=== PATIENT | female | born 1985 | race African-American/Black ===

== ENCOUNTER 2023-11-21 10:15 | Emergency (ER) | payer SELFPAY ==
[2023-11-21] MEDS: Ketorolac 30 MG/ML SDV IVPUSH ONE (10:49)
[2023-11-21] MEDS: Metoclopramide 10 MG/2 ML SDV IVPUSH ONE (10:50)
[2023-11-21] MEDS: Sodium Chloride 0.9% 1,000 ML IV ONE (10:56)
[2023-11-21 11:00] LABS: BASOPHILS ABSOLUTE AUTO 0.1 x10-3/uL (0.0-0.1); BASOPHILS PERCENT AUTO 0.6 % (0.2-1.5); EOSINOPHILS ABSOLUTE AUTO 0.4 x10-3/uL (0.0-0.8); EOSINOPHILS PERCENT AUTO 3.7 % (0.6-8.1); HEMATOCRIT 37.7 % (34.2-48.2); HEMOGLOBIN 12.4 g/dL (11.4-15.5); LYMPHOCYTES ABSOLUTE AUTO 3.9 x10-3/uL (1.0-4.4); LYMPHOCYTES PERCENT AUTO 36.7 % (18.4-52.1); MEAN CORPUSCULAR HEMOGLOBIN 26.6 pg (23.9-33.9); MEAN CORPUSCULAR HGB CONC 32.8 g/dL (31.9-34.8); MEAN CORPUSCULAR VOLUME 81.2 fL (76.7-100.5); MEAN PLATELET VOLUME 7.3 fL (7.1-12.4); MONOCYTES ABSOLUTE AUTO 0.8 x10-3/uL (0.3-1.0); MONOCYTES PERCENT AUTO 7.1 % (4.4-15.7); NEUTROPHILS ABSOLUTE AUTO 5.6 x10-3/uL (1.5-6.3); NEUTROPHILS PERCENT AUTO 51.9 % (30.8-76.2); PLATELET COUNT,PLT 540 x10(3)uL (151-488); RED BLOOD CELL COUNT 4.65 x10(6)uL (3.60-5.20); RED CELL DISTRIBUTION WIDTH 14.4 % (12.3-16.5); WHITE BLOOD CELL COUNT,WBC 10.7 x10-3/uL (3.0-10.3)
[2023-11-21 11:05] LABS: LIPASE 47 U/L (16-77)
[2023-11-21 11:06] LABS: BLOOD UREA NITROGEN,BUN 9 mg/dL (7-18); BUN/CREATININE RATIO 7.5 (9-20); CALCIUM 8.9 mg/dL (8.6-10.2); CARBON DIOXIDE,CO2 27 mmol/L (21-32); CHLORIDE,CL 106 mmol/L (100-110); CREATININE 1.2 mg/dL (0.55-1.02); ESTIMATED GFR 60 mL/min (>60); GLUCOSE RANDOM 99 mg/dL (80-116); POTASSIUM,K 3.7 mmol/L (3.5-5.3); SODIUM,NA 142 mmol/L (135-145)
[2023-11-21 11:07] LABS: C-REACTIVE PROTEIN < 0.50 mg/dL (<0.50)
[2023-11-21 11:12] LABS: A/G RATIO 1.1; ALANINE AMINOTRANSFERASE,ALT 31 U/L (12-36); ALBUMIN 3.9 g/dL (3.5-5.2); ALKALINE PHOSPHATASE 115 IU/L (56-112); ASPARTATE AMNIOTRANSFERASE,AST 19 IU/L (5-25); BILIRUBIN TOTAL 0.2 mg/dL (0.1-1.3); PROTEIN TOTAL,TP 7.4 g/dL (6.0-8.0)
[2023-11-21 11:19] LABS: EST CRCL DRUG DOSING (CG) 60.67 mL/min
[2023-11-21] MEDS: Iopamidol 755 Mg/ML 100 ML Bottle IV SCH (11:54)
[2023-11-21] MEDS: Ondansetron 4 MG/2 ML SDV IVPUSH ONE (12:06)
[2023-11-21] MEDS: diphenhydrAMINE 50 MG/ML SDV IVPUSH ONE (12:10)
[2023-11-21 12:24] LABS: BILIRUBIN,URINE NEGATIVE (NEGATIVE); GLUCOSE,URINE NORMAL (NORMAL); KETONES,URINE NEGATIVE (NEGATIVE); LEUKOCYTE ESTERASE,URINE NEGATIVE (NEGATIVE); NITRITE,URINE NEGATIVE (NEGATIVE); OCCULT BLOOD,URINE LARGE (NEGATIVE); PROTEIN,URINE NEGATIVE (NEGATIVE); UROBILINOGEN,URINE NORMAL (NEGATIVE)
[2023-11-21 12:31] LABS: APPEARANCE,URINE TURBID (CLEAR); COLOR,URINE YELLOW (YELLOW); RBC,URINE 50-75 (0-5)
[2023-11-21 12:32] LABS: BACTERIA,URINE MODERATE (NS); SQUAMOUS EPITHELIAL CELLS,UR MODERATE (NS,R,O); WBC,URINE 0-5 (0-5)
== END 2023-11-21 13:52 | disposition home or self-care (01) ==
LOC: FB.ED 10:15
DX: N13.2 Hydronephrosis with renal and ureteral calculous obstruction (principal); R79.89 Other specified abnormal findings of blood chemistry
CPT/HCPCS: 36415; 74177; 80053; 81001; 81025; 83690; 85025; 86140; 96361; 96374; 96375; 99284; 99285; J1200; J1885; J2405; J2765; J7030; Q9967